=== PATIENT | female | born 1940 | race Caucasian/White ===

== ENCOUNTER 2017-01-15 07:54 | Emergency (ER) | payer MEDICARE ==
--- NOTE | 2017-01-15 08:20 | ED ---
General Adult HPI - General Chief complaint: Fall Stated complaint: Fall Time Seen by Provider: 01/15/17 08:11 Source: patient, family, RN notes reviewed Mode of arrival: wheelchair Limitations: no limitations - History of Present Illness Initial comments: Patient is a pleasant 76-year-old female presenting to the emergency department following a fall. Patient was hurrying to the bathroom when she tripped and fell. Patient did strike her face. Patient is on aspirin. No loss of consciousness. No weakness or confusion. Tetanus immunization is less than 10 years. Patient also hurt her left hand and right ribs. No neck or back pain - Related Data Allergies Allergy/AdvReac Type Severity Reaction Status Date / Time naproxen Allergy Unknown Verified 01/15/17 07:58 pregabalin [From Lyrica] Allergy Unknown Verified 01/15/17 07:58 Review of Systems ROS Statement: Those systems with pertinent positive or pertinent negative responses have been documented in the HPI. ROS Other: All systems not noted in ROS Statement are negative. Constitutional: Denies: fever Eyes: Denies: eye pain ENT: Denies: ear pain Respiratory: Denies: cough Cardiovascular: Denies: chest pain, palpitations Endocrine: Denies: fatigue Gastrointestinal: Denies: abdominal pain Genitourinary: Denies: dysuria Musculoskeletal: Denies: back pain Skin: Denies: rash Neurological: Denies: headache Past Medical History Additional Past Medical History / Comment(s): parkinson History of Any Multi-Drug Resistant Organisms: None Reported Past Surgical History: Back Surgery Past Psychological History: No Psychological Hx Reported Smoking Status: Never smoker Past Alcohol Use History: None Reported Past Drug Use History: None Reported General Exam Limitations: no limitations General appearance: alert, in no apparent distress Head exam: Present: other (Right periorbital ecchymosis without tenderness) Eye exam: Present: normal appearance, PERRL, EOMI. Absent: nystagmus ENT exam: Present: normal oropharynx Neck exam: Present: normal inspection. Absent: tenderness Respiratory exam: Present: normal lung sounds bilaterally, chest wall tenderness (Mild right lateral chest wall) Cardiovascular Exam: Present: regular rate, normal rhythm GI/Abdominal exam: Present: soft. Absent: tenderness Extremities exam: Present: other (Swelling and ecchymosis left fourth and fifth digit. Some decreased range of motion of left fifth digit. Sensation intact.) Back exam: Present: normal inspection. Absent: tenderness Neurological exam: Present: alert. Absent: motor sensory deficit Expanded Motor strength exam: RUE: 5, LUE: 5, RLE: 5, LLE: 5 Psychiatric exam: Present: normal affect, normal mood Skin exam: Present: other (Ecchymosis face and left hand. Abrasions left hand and right hand) Course Vital Signs 01/15/17 07:58 Temperature 98.2 F Pulse Rate 89 Respiratory 17 Rate Blood Pressure 92/51 O2 Sat by Pulse 98 Oximetry Procedures - Orthopedic Joint Reduction Joint #1 Consent Obtained: verbal consent Time Out Performed: Yes Side: left Joint Reduction Location: finger (Left fifth) Shoulder Technique Used (if applicable): traction/counter-traction Post-Reduction Neuro Exam: intact Post-Reduction Vascular Exam: intact Splint Applied: Yes Patient Tolerated Procedure: well, no complications Medical Decision Making - Medical Decision Making Patient reexamined and resting comfortably in bed. Patient remains neurologically intact. Patient is starting to complain of a small headache. Patient and family were updated on results and need for transfer. Case was discussed with Dr. Morales at [facility] who will accept transfer. - Radiology Data Radiology results: image reviewed (Computed tomography scan the brain shows subdural hematoma on the right, up to 1 cm. X-ray of the left hand does show dislocation of the PIP of the small finger. Chest x-ray shows no acute process. ) Disposition Clinical Impression: Subdural hematoma, Finger dislocation Disposition: OTHER INSTITUTION NOT DEFINED Condition: Stable Referrals: Anjel Ramirez MD [Primary Care Provider] - 1-2 days Time of Disposition: 09:35 - Out of Hospital Transfer - Req. Specs Out of Hospital Transfer - Requested Specifics: Other Emergency Center
--- NOTE | 2017-01-15 09:28 | CT ---
EXAMINATION TYPE: CT brain wo con DATE OF EXAM: 01/15/2017 9:03 AM COMPARISON: Prior CT brain 21 May 2011 HISTORY: Fall, Bruising to Rt eye CT DLP: 1784.2 mGycm Automated exposure control for dose reduction was used. FINDINGS: Right-sided crescentic high attenuation consistent with subdural hematoma is present over the tempora l and frontal lobes measuring approximately 1 cm in greatest thickness anteriorly. There is some juwan on on the exam however some minimal mass effect is suspected. No evident fracture. Soft tissue swelli ng noted over the right orbit and face. There is an air-fluid level in the right maxillary sinus. IMPRESSION: Subdural hemorrhage, report relayed to Dr. Solorzano telephonically at the time of interpretation. There is motion on the exam. Posttraumatic changes as above, follow-up as indicated.
--- NOTE | 2017-01-15 09:30 | XR ---
EXAMINATION TYPE: XR chest 2V DATE OF EXAM: 01/15/2017 9:05 AM COMPARISON: Prior chest x-ray May HISTORY: fall, trauma TECHNIQUE: Frontal and lateral views of the chest are obtained. FINDINGS: There is no focal air space opacity, pleural effusion, or pneumothorax seen. The cardiac silhouette size is within normal limits. The osseous structures are intact. IMPRESSION: No acute cardiopulmonary process.
--- NOTE | 2017-01-15 09:31 | XR ---
Left hand HISTORY: Trauma and pain No comparisons Arthropathy changes are present. Bone mineralization is reduced. Posterior dislocation is noted at th e proximal interphalangeal joint of the fifth digit with bayonet apposition. No evident fracture. IMPRESSION: Dislocation fifth digit as described.
[2017-01-15] MEDS ORDERED: ACETAMINOPHEN IV (For NPO) 1,000 MG in SALINE 1 100ML.BAG IVPB STA (09:33)
[2017-01-15 09:42] VITALS: BP 182/83; PULSE 92; RESP 18; TEMP 97.3
== END 2017-01-15 10:04 | disposition short-term general hospital (02) ==
LOC: EC 07:54
DX: S63.287A Dislocation of proximal interphalangeal joint of left little finger, initial encounter (principal); S06.5X0A Traumatic subdural hemorrhage without loss of consciousness, initial encounter; Z88.6 Allergy status to analgesic agent; Z88.8 Allergy status to other drugs, medicaments and biological substances; W01.0XXA Fall on same level from slipping, tripping and stumbling without subsequent striking against object, initial encounter; Y92.89 Other specified places as the place of occurrence of the external cause
CPT/HCPCS: 99285; 26770; 96374; 71020; 73130; 70450; J0131

== ENCOUNTER 2017-01-30 10:05 | Emergency (ER) | payer MEDICARE ==
[2017-01-30] MEDS ORDERED: SODIUM CHLORIDE 0.9% 500 ML IV STA (10:28)
--- NOTE | 2017-01-30 10:32 | ED ---
General Adult HPI - General Chief complaint: Neuro Symptoms/Deficit Stated complaint: SLURRED SPEECH Time Seen by Provider: 01/30/17 10:10 Source: patient, RN notes reviewed Mode of arrival: wheelchair Limitations: no limitations - History of Present Illness Initial comments: This is a 76-year-old female who presents emergency Department with family. Family states the patient had droopiness to the face on the left as well as some drooling yesterday it seemed to have subsided overnight his this morning she was without symptoms but came back again and now is again subsided. Patient states she has a mild headache because she was diagnosed with a subdural a couple of weeks ago and sent down to [facility]. Patient states the headache is not changed per patient denies any new numbness or weakness. Patient denies any visual disturbance or speech disturbance. Patient denies any recent fever or chills. Patient denies any cough per patient denies palpitations difficulty breathing. Patient denies any abdominal pain patient denies nausea vomiting diarrhea. Any new injury or trauma patient denies being on any blood thinners. - Related Data Home Medications Medication Instructions Recorded Confirmed Acetaminophen Tab [Tylenol Tab] 1,000 mg PO Q6HR PRN 01/30/17 01/30/17 Aspirin 81 mg PO DAILY 01/30/17 01/30/17 Carbidopa-Levodopa 25-100 mg 1 tab PO QID 01/30/17 01/30/17 [Sinemet 25-100] Carbidopa/Levodopa [Sinemet CR 1 tab PO HS 01/30/17 01/30/17 50-200 mg] PARoxetine [Paxil] 20 mg PO DAILY 01/30/17 01/30/17 Solifenacin Succinate [Vesicare] 5 mg PO DAILY 01/30/17 01/30/17 rOPINIRole HCL [rOPINIRole HCL ER] 8 mg PO HS 01/30/17 01/30/17 Allergies Allergy/AdvReac Type Severity Reaction Status Date / Time naproxen Allergy Unknown Verified 01/30/17 11:18 pregabalin [From Lyrica] Allergy Unknown Verified 01/30/17 11:18 Review of Systems ROS Statement: Those systems with pertinent positive or pertinent negative responses have been documented in the HPI. ROS Other: All systems not noted in ROS Statement are negative. Past Medical History Additional Past Medical History / Comment(s): parkinson, facial bone break, brain bleed History of Any Multi-Drug Resistant Organisms: None Reported Past Surgical History: Back Surgery Past Psychological History: No Psychological Hx Reported Smoking Status: Never smoker Past Alcohol Use History: None Reported Past Drug Use History: None Reported General Exam - General Exam Comments Initial Comments: GENERAL: Patient is well-developed and well-nourished. Patient is nontoxic and well- hydrated and is in no acute distress. She has a little underlying clonic movement of the left side she states it's her Parkinson's and that is normal ENT: Neck is soft and supple. No significant lymphadenopathy is noted. Oropharynx is clear. Moist mucous membranes. Neck has full range of motion without eliciting any pain. EYES: The sclera were anicteric and conjunctiva were pink and moist. Extraocular movements were intact and pupils were equal round and reactive to light. Eyelids were unremarkable. PULMONARY: Unlabored respirations. Good breath sounds bilaterally. No audible rales rhonchi or wheezing was noted. CARDIOVASCULAR: There is a regular rate and rhythm without any murmurs gallops or rubs. ABDOMEN: Soft and nontender with normal bowel sounds. No palpable organomegaly was noted. There is no palpable pulsatile mass. SKIN: Skin is clear with no lesions or rashes and otherwise unremarkable. NEUROLOGIC: Patient is alert and oriented x3. Cranial nerves II through XII are grossly intact. Motor and sensory are also intact. Normal speech, volume and content. Symmetrical smile. Cerebellar exam grossly intact. MUSCULOSKELETAL: Normal extremities with adequate strength and full range of motion. No lower extremity swelling or edema. No calf tenderness. LYMPHATICS: No significant lymphadenopathy is noted PSYCHIATRIC: Normal psychiatric evaluation. Normal interpersonal interactions appears functionally intact in deals appropriately with others. No signs of depression. No signs of anxiety. Limitations: no limitations Course Vital Signs 01/30/17 01/30/17 01/30/17 10:06 10:26 11:18 Temperature 97.1 F L 97.5 F L 97.8 F Pulse Rate 77 77 67 Respiratory 18 20 18 Rate Blood Pressure 122/60 159/65 192/79 O2 Sat by Pulse 97 96 98 Oximetry Medical Decision Making - Medical Decision Making EKG shows normal sinus rhythm at 64 bpm WA interval is 144 QRS is 86 QT interval is 422 QTC is 435. Patient's EKG shows significant ST segment elevation or depression or T-wave abdomen is noted. Computed tomography scan of the brain shows right-sided subdural with interval enlargement measuring 1.3 cm thick versus a previous 1 cm thickness it also shows both acute and subacute components to the subdural. Patient also has mass effect 8 mm leftward. I spoke with the [facility] they accepted the patient transferred the patient to their facility - Lab Data Result diagrams: 01/30/17 10:35 01/30/17 10:35 Lab Results 01/30/17 01/30/17 01/30/17 Range/Units 10:35 10:35 10:35 WBC 8.9 (3.8-10.6) k/uL RBC 4.33 (3.80-5.40) m/uL Hgb 13.4 (11.4-16.0) gm/dL Hct 40.0 (34.0-46.0) % MCV 92.3 (80.0-100.0) fL MCH 31.0 (25.0-35.0) pg MCHC 33.6 (31.0-37.0) g/dL RDW 13.3 (11.5-15.5) % Plt Count 228 (150-450) k/uL Neutrophils % 83 % Lymphocytes % 9 % Monocytes % 5 % Eosinophils % 1 % Basophils % 0 % Neutrophils # 7.4 (1.3-7.7) k/uL Lymphocytes # 0.8 L (1.0-4.8) k/uL Monocytes # 0.5 (0-1.0) k/uL Eosinophils # 0.1 (0-0.7) k/uL Basophils # 0.0 (0-0.2) k/uL PT 11.0 (9.0-12.0) sec INR 1.1 (<1.1) APTT 22.6 (22.0-30.0) sec Sodium 137 (137-145) mmol/L Potassium 4.1 (3.5-5.1) mmol/L Chloride 100 (98-107) mmol/L Carbon Dioxide 29 (22-30) mmol/L Anion Gap 8 mmol/L BUN 24 H (7-17) mg/dL Creatinine 0.76 (0.52-1.04) mg/dL Est GFR (MDRD) Af Amer >60 (>60 ml/min/1.73 sqM) Est GFR (MDRD) Non-Af >60 (>60 ml/min/1.73 sqM) Glucose 98 (74-99) mg/dL Calcium 9.3 (8.4-10.2) mg/dL Total Bilirubin 0.8 (0.2-1.3) mg/dL AST 15 (14-36) U/L ALT 16 (9-52) U/L Alkaline Phosphatase 77 (38-126) U/L Total Protein 6.6 (6.3-8.2) g/dL Albumin 4.1 (3.5-5.0) g/dL Critical Care Time Critical Care Time: Yes Total Critical Care Time: 35 Disposition Clinical Impression: Acute on chronic intracranial subdural hematoma Disposition: OTHER INSTITUTION NOT DEFINED Referrals: Anjel Ramirez MD [Primary Care Provider] - 1-2 days Time of Disposition: 11:25 - Out of Hospital Transfer - Req. Specs Out of Hospital Transfer - Requested Specifics: Other Emergency Center ( [facility])
[2017-01-30 11:00] LABS: Basophils % (A) 0 %; CH 31.3; Eosinophils # (A) 0.1 k/uL (0-0.7); Eosinophils % (A) 1 %; HDW 2.63; HGB 13.4 gm/dL (11.4-16.0); Luc # (Auto) 0.09; Luc % (Auto) 1; Lymphocytes # (A) 0.8 k/uL (1.0-4.8); Lymphocytes % (A) 9 %; MCHC 33.6 g/dL (31.0-37.0); MCV 92.3 fL (80.0-100.0); Mean Platelet Volume 6.8; Monocytes # (A) 0.5 k/uL (0-1.0); Monocytes % (A) 5 %; Neutrophils # (A) 7.4 k/uL (1.3-7.7); Neutrophils % (A) 83 %; RBC 4.33 m/uL (3.80-5.40); RDW 13.3 % (11.5-15.5); WBC 8.9 k/uL (3.8-10.6); WBC (Perox) 9.17
[2017-01-30 11:12] LABS: ALT 16 U/L (9-52); AST 15 U/L (14-36); Alkaline Phosphatase 77 U/L (38-126); Anion Gap 8 mmol/L; Blood Urea Nitrogen 24 mg/dL (7-17); Calcium 9.3 mg/dL (8.4-10.2); Carbon Dioxide 29 mmol/L (22-30); Chloride 100 mmol/L (98-107); Glucose 98 mg/dL (74-99); Non-African American GFR(MDRD) >60 (>60 ml/min/1.73 sqM); Potassium 4.1 mmol/L (3.5-5.1); Sodium 137 mmol/L (137-145); Total Bilirubin 0.8 mg/dL (0.2-1.3); Total Protein 6.6 g/dL (6.3-8.2)
[2017-01-30 11:13] LABS: INR 1.1 (<1.1); Partial Thromboplastin Time 22.6 sec (22.0-30.0)
--- NOTE | 2017-01-30 11:15 | CT ---
EXAMINATION TYPE: CT brain wo con for TPA DATE OF EXAM: 01/30/2017 11:03 AM COMPARISON: 01/15/2017 HISTORY: 76-year-old female with slurred speech TECHNIQUE: Examination was done in axial plane without intravenous contrast. Coronal and sagittal r econstructions performed. CT DLP: 1067.9 mGycm Automated exposure control for dose reduction was used. FINDINGS: There is redemonstrated subdural hematoma along the right lateral convexity extending anteriorly. Thi s is increased in the interval now measuring 1.3 cm thick versus 1 cm, previously. This shows mixed h yperdensity and isodensity suggesting both acute and subacute components now. There is increasing leftward midline shift of 8 mm with corresponding mass effect onto the right cere bral hemisphere and asymmetric partial flattening of the right lateral ventricle. There is slight shahid bfalcine herniation. No hydrocephalus. Camacho-white matter differentiation is maintained. Lobulated mucosal thickening lateral right maxillary sinus. Mastoid air cells well pneumatized. Hannah rium is intact. IMPRESSION: 1. The patient's right-sided subdural hematoma shows interval enlargement measuring 1.3 cm thick vers us 1 cm, previously now with both acute and subacute components. 2. Increasing mass effect with 8 mm leftward midline shift and slight subfalcine herniation. 3. No acute ischemic changes seen at this time. Findings called to Dr. Dang in the ER at approximately 11:10 AM.
[2017-01-30 11:19] VITALS: RESP 18
[2017-01-30 11:19] LABS: Creatine Kinase 55 U/L (30-135)
--- NOTE | 2017-01-30 11:31 | XR ---
EXAMINATION TYPE: XR chest 2V DATE OF EXAM: 01/30/2017 11:13 AM COMPARISON: 01/15/2017 HISTORY: 76 year-old female altered mental status, slurred speech, stroke like symptoms after fall on e week ago TECHNIQUE: Frontal and lateral views FINDINGS: Heart remains borderline enlarged. Mild diffuse interstitial prominence persists and likely chronic s enescent change. Strandy atelectasis at the lower lungs. No consolidation or pleural effusion. Endpla te spondylosis mid and lower thoracic spine. IMPRESSION: Borderline heart size and chronic changes. Some strandy atelectasis in the lower lungs. No acute proc ess seen.
[2017-01-30 11:33] LABS: Troponin I <0.012 ng/mL (0.000-0.034)
[2017-01-30 11:55] VITALS: BP 183/84; PULSE 71; TEMP 97.9
== END 2017-01-30 11:59 | disposition other institution (70) ==
LOC: EC 10:05
DX: I62.03 Nontraumatic chronic subdural hemorrhage (principal); I62.9 Nontraumatic intracranial hemorrhage, unspecified; G20 Parkinson's disease; Z79.82 Long term (current) use of aspirin; Z79.899 Other long term (current) drug therapy; Z88.6 Allergy status to analgesic agent; Z88.8 Allergy status to other drugs, medicaments and biological substances
CPT/HCPCS: 36415; 70450; 71020; 80053; 82550; 82553; 84484; 85025; 85610; 85730; 93005; 96360; 99285

== ENCOUNTER → 2017-04-08 | Outpatient (CLI) | payer MEDICARE ==
[2017-04-08 16:28] LABS: Basophils % (A) 1 %; CH 30.1; CHCM 33.1; Eosinophils # (A) 0.1 k/uL (0-0.7); Eosinophils % (A) 1 %; HDW 2.52; HGB 13.3 gm/dL (11.4-16.0); Luc # (Auto) 0.17; Luc % (Auto) 2; Lymphocytes # (A) 1.2 k/uL (1.0-4.8); Lymphocytes % (A) 14 %; MCH 31.1 pg (25.0-35.0); MCHC 34.1 g/dL (31.0-37.0); MCV 91.2 fL (80.0-100.0); Mean Platelet Volume 7.5; Monocytes # (A) 0.6 k/uL (0-1.0); Monocytes % (A) 7 %; Neutrophils # (A) 6.3 k/uL (1.3-7.7); Neutrophils % (A) 75 %; RBC 4.28 m/uL (3.80-5.40); RDW 13.2 % (11.5-15.5); WBC 8.4 k/uL (3.8-10.6); WBC (Perox) 7.84
[2017-04-08 16:42] LABS: C Reactive Protein 26.9 mg/L (<10.0); Rheumatoid Factor, Qnt <9 IU/mL (<12); Uric Acid 3.9 mg/dL (3.7-7.4)
[2017-04-08 18:34] LABS: Erythrocyte Sedimentation Rate 19 mm/hr (0-20)
== END | disposition home or self-care (01) ==
LOC: LABWHC1 16:12
PROVIDERS: ATTEND Podiatrist Foot & Ankle Surgery
DX: M10.9 Gout, unspecified (principal)
CPT/HCPCS: 36415; 84550; 85025; 85652; 86140; 86431

== ENCOUNTER → 2017-08-12 | Outpatient (CLI) | payer MEDICARE ==
--- NOTE | 2017-08-12 11:18 | XR ---
EXAMINATION TYPE: XR foot complete LT DATE OF EXAM: 08/12/2017 COMPARISON: NONE HISTORY: Chronic ulceration of skin first metatarsophalangeal joint space TECHNIQUE: Three-view left foot FINDINGS: Hallux valgus deformity is present with subluxation of the first metatarsal. Post bunionect marian along the medial distal first metatarsal. Soft tissue swelling overlies the first metatarsophalan geal joint space. No acute fractures are evident. Suspicious cortical erosion identified plantar calc aneal heel spur is present. Surgical sutures over the proximal phalanx first digit. IMPRESSION: 1. Hallux valgus deformity first digit. 2. Soft tissue swelling first metatarsophalangeal joint space. 3. Suspicious radiographic findings to suggest osteomyelitis are not evident. 3 phase bone scan could be performed if closer evaluation is required.
== END | disposition home or self-care (01) ==
LOC: RADXRMAIN 10:25
PROVIDERS: ATTEND Internal Medicine
DX: M20.12 Hallux valgus (acquired), left foot (principal); L98.491 Non-pressure chronic ulcer of skin of other sites limited to breakdown of skin

== ENCOUNTER → 2017-08-29 | Outpatient (CLI) | payer MEDICARE ==
--- NOTE | 2017-08-29 15:01 | NM ---
EXAMINATION TYPE: NM bone 3 phase DATE OF EXAM: 08/29/2017 COMPARISON: Radiograph 08/12/2017 HISTORY: 76 year-old female recurrent left foot cellulitis Technique: Triple phase bone scintigraphy was performed following the injection of27.6 mCi Tc 99m MDP . Immediate images and 5.25 hours post injection images acquired. FINDINGS: Flow images show hyperemia involving the left foot more focally along the region of the medial forefo ot. Similar findings seen on pool images. Delayed images show focal intense tracer activity in the region of the left first MTP joint. IMPRESSION: Three-phase positive bone scan findings in the region of the left first MTP joint. Findings can be se en in the setting of osteomyelitis.
== END | disposition home or self-care (01) ==
LOC: RADNMMAIN 07:23
PROVIDERS: ATTEND Internal Medicine
DX: L03.032 Cellulitis of left toe (principal)
CPT/HCPCS: 78315; A9503

== ENCOUNTER 2017-09-22 11:01 | Day surgery (SDC) | payer MEDICARE ==
[2017-09-16 14:48] VITALS: BMI 25.3
[~2017-09-22 11:01] MED LIST: DEXAMETHASONE SOD PHOSPHATE 10 MG/ML 1 ML VIAL IV ONE; ONDANSETRON 4 MG/2 ML VIAL IVP ONE; ceFAZolin IN SWFI 2 GM/20 ML SYRINGE IVP ONE
[2017-09-22] MEDS ORDERED: LIDOCAINE 1% 20 ML VIAL (10MG/ML) FOR IV START INTRADERMA ONE (11:55)
[2017-09-22] MEDS: LACTATED RINGERS 1,000 ML IV SCH ×2 (11:56→16:07)
[2017-09-22] MEDS ORDERED: SENNOSIDES-DOCUSATE SODIUM 1 EACH TAB PO PRN (12:21)
[2017-09-22] MEDS ORDERED: HYDROmorphone 1 MG/ML 1 ML SYRINGE IVP PRN ×3 (12:21)
[2017-09-22] MEDS ORDERED: diphenhydrAMINE 25 MG CAP PO PRN (12:21)
[2017-09-22] MEDS ORDERED: ONDANSETRON 4 MG/2 ML VIAL IVP PRN (12:21)
[2017-09-22] MEDS ORDERED: METOCLOPRAMIDE 5 MG/ML 2 ML VIAL IVP PRN (12:21)
[2017-09-22] MEDS ORDERED: TEMAZEPAM 15 MG CAP PO PRN (12:21)
[2017-09-22] MEDS ORDERED: hydrOXYzine PAMOATE 25 MG CAP PO PRN (12:21)
[2017-09-22] MEDS ORDERED: PROCHLORPERAZINE SUPPOSITORY 25 MG SUPP RECTAL PRN (12:21)
[2017-09-22] MEDS ORDERED: HYDROcodone/APAP 7.5-325MG 1 EACH TAB PO PRN (12:26)
[2017-09-22] MEDS ORDERED: fentaNYL (PF) 50 MCG/ML 2 ML AMP ONE (12:32)
[2017-09-22] MEDS ORDERED: SUCCINYLCHOLINE CHLORIDE 100 MG/5 ML SYR IV ONE (12:32)
[2017-09-22] MEDS ORDERED: LIDOCAINE 1% INJ 10MG/ML (20 ML MDV) ONE (12:32)
[2017-09-22] MEDS ORDERED: MIDAZOLAM 2 MG/2 ML VIAL ONE (12:32)
[2017-09-22] MEDS ORDERED: PROPOFOL 10 MG/ML 20 ML VIAL IV ONE (12:32)
[2017-09-22] MEDS ORDERED: SODIUM CHLORIDE 0.9% 50 ML with ceFAZolin 2,000 MG IV ONE ×2 (13:00)
--- NOTE | 2017-09-22 13:43 | FL ---
Fluoroscopy History: lt great toe amputation lt great toe amputation in OR. 8 sec fl time. 1 pic scanned
[2017-09-22] MEDS: HYDROmorphone 0.5 MG/0.5 ML SYRINGE IVP PRN ×2 (14:13→14:19)
[2017-09-22] MEDS: HYDROmorphone 1 MG/ML 1 ML SYRINGE IVP ONE ×2 (14:35→14:45)
[2017-09-22] MEDS ORDERED: ACETAMINOPHEN TAB 500 MG TAB PO PRN (16:52)
[2017-09-22] MEDS: CARBIDOPA-LEVODOPA 25-100 MG 1 EACH TAB PO SCH ×2 (17:53→20:30)
[2017-09-22] MEDS: ceFAZolin IN SWFI 2 GM/20 ML SYRINGE IVP SCH ×2 (17:55→23:33)
[2017-09-22] MEDS: PARoxetine 10 MG TAB PO SCH (20:31)
[2017-09-22] MEDS ORDERED: OXYBUTYNIN 10 MG TAB.ER.24 PO SCH (21:00)
[2017-09-22] MEDS: CARBIDOPA-LEVODOPA ER 50-200MG 1 EACH TABLET.ER PO SCH (22:08)
--- NOTE | 2017-09-22 23:31 | CONS ---
CONSULTATION ATTENDING PHYSICIAN: Dr. Kowalski. CONSULTING PHYSICIAN: Dr. Nichol Ramirez. Consultation regarding medical evaluation management. HISTORY OF PRESENT ILLNESS: This is a 76-year-old female was referred to Dr. Kowalski because of the patient having recurrent drainage from her 1st MTP site. The patient had a previous callus which has healed. The patient had actually been seeing a sql database administrator who had treated her with antibiotics with negative cultures repeatedly. The patient had subsequently been to the wound center because of an ulcerated callus. She was treated at the wound center for a while. The patient presented to [facility] with inflamed 1st MTP with no drainage at that time. However, a small aspirate from subcutaneous area was sent for a culture, which was negative. The patient was treated with Bactrim with resolution of further inflammation at the MTP. The patient has subsequently intermittent drainage and in view of this, was referred to Dr. Kowalski for possible underlying deep tissue infections or osteomyelitis. After studies, it was concluded that the patient had osteomyelitis and in view of this, patient underwent surgical procedure today. The patient is doing well postoperatively. PAST MEDICAL HISTORY: Significant for Parkinson's. The patient is on medical therapy for the same. She follows with a neurologist in [place]. The patient also has a history of degenerative arthritis with some left leg radicular symptoms which have been chronic. The patient is being treated with Paxil to help those symptoms. History of chronic urinary incontinence, history of degenerative arthritis. The patient has no history of diabetes mellitus, lung disease, liver disease, kidney disease, ulcers, TB, hepatitis. No history of any rheumatic fever, myocardial infarction or CVA. PAST SURGICAL HISTORY: Significant for evacuation of a subdural hematoma and previous lumbosacral surgery. Also significant for tubal ligation, bilateral cataracts, and tonsillectomy. PERSONAL HISTORY: Never smoker. Alcohol: None. ALLERGIES TO MEDICATIONS: Which include AMANTADINE, NAPROXEN and LYRICA. HOME MEDICATION LIST: Includes: 1. Requip ER 8 mg daily. 2. VESIcare 5 mg daily. 3. Paxil 10 mg daily. 4. Multivitamin daily. 5. Magnesium 250 mg daily. 6. Sinemet CR 50/200, 1 daily at bedtime and Sinemet 25/100, 1-1/2 tablet at 7:00, 10:00, 13:00 and 1600 hours and 1900 hours. 7. Calcium with vitamin D and. 8. Tylenol. SOCIAL HISTORY: Patient is , lives with her spouse, who provides excellent care for her. FAMILY MEDICAL HISTORY: Patient has 2 daughters in good health. REVIEW OF SYSTEMS: NEURO: Denies any headaches, dizziness. No double vision, blurred vision. No symptoms of TIA, syncope, seizures. PSYCH: No anxiety, depression. CARDIAC: No chest pain, angina, palpitations. RESPIRATORY: No shortness of breath, cough, hemoptysis. GI: No nausea, vomiting, abdominal pain, diarrhea. : No symptoms of dysuria, hematuria, has a history of incontinence. EXTREMITIES: Denies any pain in the right foot at present. CONSTITUTIONAL: No fever, chills. HEMATOLOGICAL: No anemia or bleeding disorder. ENDOCRINE: No history of diabetes mellitus, hypothyroidism. SKIN: No rashes. PHYSICAL EXAMINATION: Pleasant female at present in no distress. Vital signs are temp, patient is afebrile with a temperature 98.2, respirations 17, blood pressure 152/84, pulse ox 97%. HEENT: Normocephalic. NECK: Decreased range of motion. CHEST: Clear to auscultation. CARDIAC: Normal S1, S2 with no gallops, murmurs, rubs. ABDOMEN: Soft. No palpable masses. Bowel sounds normal. No organomegaly. No abdominal bruits. EXTREMITIES: No edema. Good pedal pulses, right foot. The left foot has a dressing. NEUROLOGICAL: Awake, alert, oriented x3 with well-coordinated movements. Has generalized bradykinesia and generalized stiffness. No tremors noted. LABORATORY ASSESSMENT: None new. ASSESSMENT: 1. Parkinson's, on medical therapy. 2. History of chronic urinary incontinence. 3. Degenerative arthritis, especially affecting lumbosacral spine. 4. Status post left great toe amputation. PLAN: The patient is stable. Continue present medical regimen. Patient's condition discussed with the patient. Prognosis guarded. MMODL / IJN: [id number] /
[2017-09-23] MEDS: LACTATED RINGERS 1,000 ML IV SCH (00:52)
[2017-09-23] MEDS ORDERED: CARBIDOPA-LEVODOPA 25-100 MG 1 EACH TAB PO SCH (07:00)
[2017-09-23] MEDS: CARBIDOPA-LEVODOPA 25-100 MG 1 EACH TAB PO SCH (07:28)
[2017-09-23] MEDS: HYDROcodone/APAP 7.5-325MG 1 EACH TAB PO PRN (07:36)
[2017-09-23] MEDS ORDERED: ENOXAPARIN 40 MG/0.4 ML SYRINGE SQ ONE (08:30)
[2017-09-23] MEDS ORDERED: PARoxetine 10 MG TAB ONE (08:30)
[2017-09-23] MEDS ORDERED: CALCIUM CARB-VIT D 500MG-200UN 1 EACH TAB ONE (08:30)
[2017-09-23] MEDS ORDERED: MAGNESIUM OXIDE 400 MG TAB ONE (08:30)
[2017-09-23] MEDS ORDERED: VIT A,C & E-LUTEIN-MINERALS 1 EACH TAB ONE (08:30)
[2017-09-23] MEDS ORDERED: CARBIDOPA-LEVODOPA 25-100 MG 1 EACH TAB ONE ×2 (08:30)
[2017-09-23] MEDS ORDERED: CARBIDOPA-LEVODOPA ER 50-200MG 1 EACH TABLET.ER PO ONE (08:30)
[2017-09-23] MEDS ORDERED: HYDROcodone/APAP 7.5-325MG 1 EACH TAB ONE ×3 (08:30)
[2017-09-23] MEDS ORDERED: MULTIVITAMINS, THERA 1 EACH TAB ONE (08:30)
[2017-09-24] MEDS ORDERED: HYDROcodone/APAP 7.5-325MG 1 EACH TAB ONE (00:40)
[2017-09-24] MEDS: HYDROcodone/APAP 7.5-325MG 1 EACH TAB PO PRN ×4 (06:50→19:07)
--- NOTE | 2017-09-24 08:21 | OP ---
OPERATIVE REPORT DATE OF SURGERY: 09/22/2017. PREOPERATIVE DIAGNOSES: 1. Left recurrent hallux valgus with chronic open draining wound and likely osteomyelitis of the distal 1st metatarsal proximal phalanx. 2. Parkinson disease. POSTOPERATIVE DIAGNOSES: 1. Left recurrent hallux valgus with chronic open draining wound and likely osteomyelitis of the distal 1st metatarsal proximal phalanx. 2. Parkinson disease. PROCEDURE: Left partial 1st ray amputation. SURGEON: Dr. Fab Kowalski. CONSUMER LOAN MANAGER: Isaac BUTLER (Isaac BUTLER was required as a skilled physiotherapist's assistant for patient positioning, surgical exposure, completion of the amputation and closure of wound). ANESTHESIA: General. FLUIDS: 250 mL of crystalloid. TOURNIQUET TIME: 20 minutes. INDICATION: The patient is a very pleasant 76-year-old female with a medical history significant for Parkinson disease. She previously underwent surgery for a hallux valgus, but unfortunately had a recurrence. She developed an open draining wound over the medial eminence of her 1st MTP joint that has periodically opened and drained savage pus. She has been [facility], but had ongoing problems. She came to see me. An MRI was obtained which showed findings consistent with osteomyelitis. I had a lengthy discussion with the patient and her on treatment options. We discussed continued local wound care with suppression, partial resection of the 1st ray, resection of the joint, and a transmetatarsal amputation. The patient and her spoke with her primary care physician as well. We ultimately decided to perform a partial 1st ray amputation. We discussed the potential risks and complications of surgery including, but not limited to risk of anesthesia, risk of superficial infection, risk of delayed wound healing, risk of superficial wound necrosis, risk of phantom limb pain, risk of need for more proximal amputation including a transmetatarsal amputation or below-knee amputation, risk of recurrent open wounds, risk of difficulty ambulating, risk of balance issues, risk of dissatisfaction with surgery, risk of failure to regain pre-injury level of function, risk of DVT, risk of PE, risk of other medical complications of possible loss of life or limb. The patient, her acknowledged these risks, voiced understanding and provided consent to go forward with surgery. PROCEDURE: The patient identified in preoperative holding. The correct left leg and 1st toe were marked with my initials. I reviewed the consent form with the patient and her . All their questions were answered. The patient was then brought back to the operating room. She was positioned on the OR table under general anesthetic and preoperative antibiotics were administered. All bony prominences were well padded. A tourniquet was applied to the proximal aspect of the left thigh. The patient's leg was then prepped and draped in the standard sterile fashion. Prior to starting surgery, time- out was performed identifying the correct patient, operative extremity, and procedure. The patient's leg was then elevated for 2 minutes and the tourniquet was inflated to 250 mmHg. I began by outlining a skin incision for a partial 1st ray resection. A longitudinal limb was made along the medial border of the 1st metatarsal. The open draining wound was ellipsed was marked. An ellipse was marked over the open draining wound and then racquet type and markings were made over the base of the proximal phalanx. Skin incision was made with a 15 blade scalpel down to bone along the previously made markings. The 1st MTP joint was circumferentially exposed. The flexor and extensor tendons were cut proximally and allowed to retract. The neurovascular bundle was identified, cut and coagulated with electrocautery. The MTP joint was then disarticulated and the toe was handed off to the back table and was sent as a specimen. The 1st metatarsal was then exposed. A small microsagittal saw was used to make an oblique cut starting proximal medial and ending distal and lateral. There was also a double in the sagittal plane from dorsal distal to proximal plantar to help prevent any prominence on the wound. Once the cut was made, the distal 1st metatarsal head was sent as a specimen. The medial sesamoid was sharply excised. The lateral sesamoid was left. The wound was copiously irrigated. The remaining wound appeared clean with no savage pus. The wound was again copiously irrigated. The tourniquet was let down with a total tourniquet time of 20 minutes. The plantar skin from the plantar flap was then used to create a flap over the cut bone. The redundant skin from the dorsal aspect was trimmed to help prevent any dog-ears. The deep subcu was reapproximated using 0-Vicryl. The subcu was reapproximated using 2-0 Vicryl. The skin was closed using the no-touch technique and 3-0 nylon. The closure appeared to nicely reapproximate the wound with no undue tension and there was a nice plantar flap over the 1st metatarsal, which appeared to be a durable weightbearing surface. I verified that all instrument, sponge and sharp counts were correct. A sterile dressing consisting of Betadine-soaked Adaptic, 4 x 4, and Webril was applied. The patient was then woken from her anesthetic, transferred from the OR table to a gurney, brought to PACU, having tolerated the procedure well. PLAN: The patient is going to be admitted for IV antibiotics, pain control, Internal Medicine consult and wound consult. She may need discharge to a rehab facility. She is to be placed in a tall Cam boot. She can balance on her heel, but is not to bear any weight on her forefoot. She will follow up in the office in 2 weeks. MMVIRIDIANAL / YOBANIN: [id number] /
[2017-09-24] MEDS: LACTATED RINGERS 1,000 ML IV SCH ×5 (08:24→15:48)
[2017-09-24] MEDS: MAGNESIUM OXIDE 400 MG TAB PO SCH ×2 (08:25→09:09)
[2017-09-24] MEDS: ENOXAPARIN 40 MG/0.4 ML SYRINGE SQ SCH ×2 (08:25→09:09)
[2017-09-24] MEDS: CALCIUM CARB-VIT D 500MG-200UN 1 EACH TAB PO SCH ×2 (08:25→09:11)
[2017-09-24] MEDS: CARBIDOPA-LEVODOPA 25-100 MG 1 EACH TAB PO SCH ×7 (08:26→19:04)
[2017-09-24] MEDS: MULTIVITAMINS, THERA 1 EACH TAB PO SCH ×2 (08:26→13:40)
[2017-09-24] MEDS: VIT A,C & E-LUTEIN-MINERALS 1 EACH TAB PO SCH ×2 (08:26→09:26)
[2017-09-24] MEDS: CARBIDOPA-LEVODOPA ER 50-200MG 1 EACH TABLET.ER PO SCH ×2 (08:27→22:02)
[2017-09-24] MEDS: PARoxetine 10 MG TAB PO SCH ×2 (08:27→22:02)
--- NOTE | 2017-09-24 10:48 | P.DS ---
Providers Attending physician: Fab Kowalski Consults: 09/22/17 12:21 Consult Physician Routine Consulting Provider: Anjel Ramirez Consult Reason/Comments: post op medical management Do you want consulting provider notified?: Yes Primary care physician: Anjel Ramirez Hospital Course: The patient is a very pleasant 68-year-old female with a medical history significant for Parkinson's disease and a recurrent hallux valgus with open draining wound MRI evidence of underlying osteomyelitis. The patient underwent a partial first ray amputation 2 days ago. She was admitted to the hospital for medical management, antibiotics, wound care, and therapy. She did well. Her dressing was changed on postoperative day 2 and her incision appeared to be clean with minimal drainage. She was placed in a tall boot. She worked with physical therapy. She was cleared for discharge on 09/24/2017. Plan - Discharge Summary Discharge Rx Participant: Yes New Discharge Prescriptions: No Action Solifenacin Succinate [Vesicare] 5 mg PO HS Carbidopa/Levodopa [Sinemet CR 50-200 mg] 1 tab PO DAILY@2200 Acetaminophen Tab [Tylenol Tab] 1,000 mg PO Q6HR PRN PRN Reason: Pain rOPINIRole HCL [rOPINIRole HCL ER] 8 mg PO DAILY@1700 PARoxetine [Paxil] 10 mg PO HS Carbidopa-Levodopa 25-100 mg [Sinemet 25-100] 1.5 tab PO 0700,1000,1300,1600 Carbidopa-Levodopa 25-100 mg [Sinemet 25-100] 1.5 each PO 1900 Multivitamins, Thera [Multivitamin (formulary)] 1 tab PO DAILY Magnesium Oxide [Mag-Ox] 250 mg PO DAILY Vit C/E/Zn/Coppr/Lutein/Zeaxan [Preservision Areds 2 Softgel] 2 each PO DAILY Calcium Carbonate/Vitamin D3 [Caltrate 600 Plus D3 Tablet] 1 each PO DAILY Discharge Medication List Acetaminophen Tab [Tylenol Tab] 1,000 mg PO Q6HR PRN 01/30/17 [History] Carbidopa-Levodopa 25-100 mg [Sinemet 25-100] 1.5 tab PO 0700,1000,1300,1600 [History] Carbidopa/Levodopa [Sinemet CR 50-200 mg] 1 tab PO DAILY@2200 01/30/17 [History] PARoxetine [Paxil] 10 mg PO HS 01/30/17 [History] Solifenacin Succinate [Vesicare] 5 mg PO HS 01/30/17 [History] rOPINIRole HCL [rOPINIRole HCL ER] 8 mg PO DAILY@1700 01/30/17 [History] Calcium Carbonate/Vitamin D3 [Caltrate 600 Plus D3 Tablet] 1 each PO DAILY 05/23 [History] Carbidopa-Levodopa 25-100 mg [Sinemet 25-100] 1.5 each PO 1900 05/23/17 [History ] Magnesium Oxide [Mag-Ox] 250 mg PO DAILY 05/23/17 [History] Multivitamins, Thera [Multivitamin (formulary)] 1 tab PO DAILY 05/23/17 [History ] Vit C/E/Zn/Coppr/Lutein/Zeaxan [Preservision Areds 2 Softgel] 2 each PO DAILY [History]
--- NOTE | 2017-09-24 12:20 | PN ---
PROGRESS NOTE ATTENDING PHYSICIAN: Dr. Kowalski. CONSULTING PHYSICIAN: Dr. Ute Ramirez. Progress note dated 09/23/2017. DATE OF SERVICE: 09/23/2017. CHIEF COMPLAINT: Re-evaluation. HISTORY OF PRESENT ILLNESS: 76-year-old female status post left foot surgery. The patient is doing relatively well. She has a history of Parkinson's. Denies any major symptoms. She did sleep through well. Has a history of chronic urinary incontinence. Not much of symptoms at present today. REVIEW OF SYSTEMS: Neuro: Denies any headaches dizziness. Psych: No anxiety. Cardiac: No chest pain, angina or palpitation. Respiratory: No shortness of breath. GI no nausea, vomiting, abdominal pain, diarrhea. : No symptoms of dysuria or hematuria. Extremities: some pain in the left foot. CONSTITUTIONAL: No fever or chills. PHYSICAL EXAMINATION: Pleasant female in no distress. VITAL SIGNS: Temperature 97.7, pulse 75, respirations 16, blood pressure 110/60, pulse ox 96% on room air. HEENT: Normocephalic. Neck no JVD. CHEST: Clear to auscultation. Cardiac normal S1, S2. No gallops. No murmurs. ABDOMEN: Soft. Bowel sounds present. EXTREMITIES: No edema. No tenderness. Left foot minimal blood staining on the dressing. NEUROLOGIC: Awake, alert, oriented, well-coordinated movements. bradykinesia. LABORATORY DATA: None new. ASSESSMENT: 1. Parkinson's controlled. 2. Chronic urinary incontinence. 3. Status post left foot surgery. PLAN: Patient is stable. Continue present medical regimen. Patient's condition is discussed with the patient. Prognosis guarded. MMODL / IJN: [id number] /
--- NOTE | 2017-09-24 12:51 | PN ---
PROGRESS NOTE ATTENDING PHYSICIAN: Dr. Kowalski CHIEF COMPLAINT: Re-evaluation. HISTORY OF PRESENT ILLNESS: 76-year-old status post left foot surgery. The patient is doing fairly well. REVIEW OF SYSTEMS: Neuro: Denies any headaches dizziness. Psych: No anxiety. Cardiac: No chest pain, angina, palpitation. Respiratory: No shortness of breath or cough. GI no nausea, vomiting, abdominal pain, diarrhea. : No symptoms of dysuria or hematuria. Some incontinence. Extremities: Pain left foot. CONSTITUTIONAL: No fever or chills. PHYSICAL EXAMINATION: Pleasant female in no distress. Vital signs reveals temperature 97.4, pulse 72, respirations 16, blood pressure 134/67, pulse ox 95% on room air. HEENT: Normocephalic. Neck no JVD. CHEST: Clear to auscultation. Cardiac normal S1, S2 with no gallops. ABDOMEN: Soft. Bowel sounds active. EXTREMITIES: No edema. Good pulses both upper extremities and right foot. Neurological awake, alert, oriented, well-coordinated movements. The patient does have generalized bradykinesia and stiffness. LABORATORY ASSESSMENT: None new. ASSESSMENT: 1. Status post left foot surgery for osteomyelitis. 2. Parkinson's, controlled. 3. History of chronic urinary incontinence. PLAN: The patient is stable. Continue present medical regimen. Patient's condition discussed with the patient. Prognosis guarded. MMODL / IJN: [id number] /
[2017-09-25 01:16] VITALS: RESP 16
[2017-09-25] MEDS: LACTATED RINGERS 1,000 ML IV SCH ×3 (03:09→11:31)
[2017-09-25] MEDS: HYDROcodone/APAP 7.5-325MG 1 EACH TAB PO PRN ×2 (05:04→09:03)
[2017-09-25] MEDS: CARBIDOPA-LEVODOPA 25-100 MG 1 EACH TAB PO SCH ×2 (07:26→10:03)
[2017-09-25 07:30] VITALS: BP 144/71; PULSE 73; TEMP 98.3
[2017-09-25] MEDS: CALCIUM CARB-VIT D 500MG-200UN 1 EACH TAB PO SCH (08:52)
[2017-09-25] MEDS: ENOXAPARIN 40 MG/0.4 ML SYRINGE SQ SCH (08:52)
[2017-09-25] MEDS: MAGNESIUM OXIDE 400 MG TAB PO SCH (08:52)
[2017-09-25] MEDS: VIT A,C & E-LUTEIN-MINERALS 1 EACH TAB PO SCH (08:52)
--- NOTE | 2017-09-25 11:20 | P.PN ---
Subjective Progress Note Date: 09/25/17 History present illness: This 76-year-old female was admitted to the hospital and has undergone amputation of the left greater toe. Patient had a recurrent cellulitis due to an infection in the bone. Patient is doing well she has underlying history of Parkinson's. Patient feels well with no symptoms of fever or chills. Pain tolerable left foot. Patient was assisted out of bed and ambulated with a walker. She did fairly well the patient is being discharged today. REVIEW OF SYSTEMS: Neuro: Denies any headaches dizziness. Psych: Denies anxiety depression feels oriented. Cardiac: Denies chest pain and angina palpitations. Respiratory: Denies shortness of breath cough. GI: Denies nausea vomiting or abdominal pain. No diarrhea or constipation, no bowel movement yet. : Denies any pain or hematuria does have some incontinence Extremities: Mild pain left foot Skin: Intact. Constitutional: No fever, chills. Objective - Vital Signs Vital signs: Vital Signs Temp 98.3 F 09/25/17 07:30 Pulse 73 09/25/17 07:30 Resp 16 09/25/17 07:30 BP 144/71 09/25/17 07:30 Pulse Ox 94 L 09/25/17 07:30 Intake & Output 09/24/17 09/25/17 09/25/17 18:59 06:59 18:59 Other: Voiding Method Diaper # Voids 1 1 PHYSICAL EXAMINATION: Cooperative, at present in no acute distress. HEENT: Neck supple. No JVD. Chest: Clear to auscultation percussion. Cardiac: Normal S1-S2 no gallops no murmur . Abdomen: Soft bowel sounds present. Extremities: No edema no tenderness left foot site of surgery , intact sensation with no redness or drainage. Sutures in place Neurologically: Awake, alert, oriented with well-coordinated movements. Generalize increased muscle tone and bradykinesia. - Labs Labs: Microbiology - Last 24 Hours (Table) 09/22/17 13:15 Anaerobic Culture - Preliminary Foot - Left 09/22/17 13:15 Gram Stain - Final Foot - Left Wound Culture - Final Assessment and Plan Assessment: ASSESSMENT: 1. Status post left foot great toe amputation. 2. Osteomyelitis left great toe. 3. Parkinson's. 4. Chronic urinary incontinence. PLAN: Patient is stable to be discharged home. Patient's condition discussed with the patient and spouse. They're comfortable about managing well at home. Home care PT is been ordered. Also has placed the patient on pain medication and antibiotic and an aspirin prophylaxis.
== END 2017-09-25 12:31 | disposition home health service (06) ==
LOC: ORWHC2ENDO 11:01 → EDSTATUS 12:30 → 3SUR 13:44 → ORWHC2ENDO 09-25 12:31
PROVIDERS: ATTEND Orthopaedic Surgery
DX: M86.8X7 Other osteomyelitis, ankle and foot (principal); M20.12 Hallux valgus (acquired), left foot; L90.5 Scar conditions and fibrosis of skin; M65.9 Synovitis and tenosynovitis, unspecified; G20 Parkinson's disease; R32 Unspecified urinary incontinence; Z79.2 Long term (current) use of antibiotics; Z79.1 Long term (current) use of non-steroidal anti-inflammatories (NSAID); Z79.899 Other long term (current) drug therapy; Z88.8 Allergy status to other drugs, medicaments and biological substances
CPT/HCPCS: 97116; 97162; 88305; 88311; 87070; 87205; 87075; 73660; 28820; J2250; J1100; J0690 ×2; J2405; J2001; J1650; J3010; J1170 ×2; J0330; J2704

== ENCOUNTER → 2019-07-19 | Outpatient (CLI) | payer MEDICARE ==
--- NOTE | 2019-07-19 12:09 | CT ---
EXAMINATION TYPE: CT lumbar spine wo con DATE OF EXAM: 07/19/2019 11:43 AM COMPARISON: MRI 08/08/2012 HISTORY: Lower back pain after fall injuries CT DLP: 882 mGycm Automated exposure control for dose reduction was used. Unenhanced CT of the lumbar spine was performed. Bone and soft tissue window settings are submitted as well as coronal and sagittal reconstructions. FINDINGS: Alignment is near-anatomic with a slight anterolisthesis of L4 on L5. There are parapelvic left renal cysts similar to this MRI of 2011. Aorta of normal caliber. L1-L2: Mild degenerative disc disease with no focal herniation or canal stenosis. Neural foramina are patent. L2-L3: Degenerative disc disease with diffuse broad-based bulging or protrusion. Hypertrophic changes facets noted. There is compression of the thecal sac. Recommend MRI to assess for canal stenosis and bilateral foraminal encroachment L3-L4: Diffuse disc bulging with hypertrophic change of the facets. This calcification within the spi nal canal posteriorly which could related to calcification of the ligamentous structures. There appea rs to be significant canal stenosis and bilateral foraminal encroachment L4-L5: Diffuse disc bulging with hypertrophic change of the facets. This calcification within the spi nal canal posteriorly which could related to calcification of the ligamentous structures. There appea rs is severe canal stenosis and bilateral foraminal encroachment. Suspicion for unilateral incomplete stress spondylolysis on the left. L5-S1: Severe degenerative disc disease with vacuum disc and advanced facet arthropathy. Very mild ce ntral disc bulging. Mild to moderate bilateral foraminal encroachment. No definite canal stenosis. IMPRESSION: 1. Multilevel degenerative disc disease with severe changes L5-S1 and L4-L5. Severe facet arthropathy noted. 2. Severe canal stenosis L4-L5 due to hypertrophic change of the facets, ligamentum flavum and disc b ulging. Grade 1 anterolisthesis contribute to significant bilateral foraminal encroachment. 3. Diffuse disc bulging with hypertrophic changes L3-L4 result in canal stenosis and bilateral forami nal encroachment. 4. Calcifications are seen in the spinal canal posteriorly at L3-4 and L4-L5 which could be related t o ligamentous calcification. Correlation with MRI could BE obtained as clinically warranted.
== END | disposition home or self-care (01) ==
LOC: RADCTMAIN 11:23
PROVIDERS: ATTEND Psychiatry & Neurology Neurology
DX: M48.061 Spinal stenosis, lumbar region without neurogenic claudication (principal); M48.07 Spinal stenosis, lumbosacral region; M51.26 Other intervertebral disc displacement, lumbar region; M43.16 Spondylolisthesis, lumbar region; M51.36 Other intervertebral disc degeneration, lumbar region; M51.37 Other intervertebral disc degeneration, lumbosacral region; M46.97 Unspecified inflammatory spondylopathy, lumbosacral region
CPT/HCPCS: 72131

== ENCOUNTER → 2019-11-19 | Outpatient (CLI) | payer MEDICARE ==
[2019-11-19 13:24] VITALS: BP 123/66; PULSE 71; RESP 14
--- NOTE | 2019-11-19 13:38 | P.PAINCN ---
History of Present Illness - Reason for Consult Consult date: 11/19/19 Back pain and leg pain - History of Present Illness Mrs. Ny is a very pleasant 79-year-old female presents today with a chief complaint of low back pain rating down both legs. She is 79 years old and has a long history of back pain but reports can worsen the last couple years. She is here today with her . She has a history of Parkinson's disease and is on treatment. She reports she's been falling more than usual, in the past she's fallen and had a subdural hematoma which required craniotomy. As of lately she has been using a walker and is able to walk on the hospital is not able to walk as far as she used to. In the past her would walk about half a mile with her walker to 3 times a week but has been unable to do that. She describes pain across her low back which is aching sometimes sharp shooting down both legs all the way into her feet. She describes her right leg pain is worse than the left side. She reports she had a laminectomy about 25 years ago at the L4-L5 level. She denies any bowel or bladder incontinence. She would like to improve her overall pain so she knew back to walking and improve her balance. We discussed that the balance issues may be related to multiple other things, she sees a neurologist every 6 months and reports that they have worked her up for any intracranial pathologies as well. The patient has been in physical therapy in the past and would like to participate in physical therapy again but has been unable to do things because of her pain at this time. She is not using any care manager cna. She does not use any pain medications MRI of the lumbar spine shows a severe narrowing of the neural foramina at L4-L5 on both sides secondary to disc bulge as well as facet arthropathy. There is also central canal stenosis L3 4. Review of Systems Negative except for HPI Past Medical History Past Medical History: Osteoarthritis (OA) Additional Past Medical History / Comment(s): PARKINSONS, HX OF FACIAL BONE FX, BRAIN BLEED (JANUARY 2017). , STATES SOME DIFFICULTY WALKING AT TIMES-USES WALKER PRN. ,varicose veins. History of Any Multi-Drug Resistant Organisms: None Reported Past Surgical History: Back Surgery, Orthopedic Surgery, Tubal Ligation Additional Past Surgical History / Comment(s): LT GREAT TOE AMPUTATION, PAIN CLINIC INJECTIONS YEARS AGO Past Anesthesia/Blood Transfusion Reactions: Postoperative Nausea & Vomiting (PONV) Smoking Status: Never smoker - Past Family History Father Family Medical History: Cancer Additional Family Medical History / Comment(s): PROSTATE CANCER Mother Family Medical History: No Reported History Medications and Allergies Home Medications Medication Instructions Recorded Confirmed Type Acetaminophen Tab [Tylenol Tab] 1,000 mg PO Q6HR PRN 01/30/17 11/19/19 History Carbidopa-Levodopa 25-100 mg 1 tab PO 1000,1300,1600,1900 01/30/17 11/19/19 History [Sinemet 25-100] PARoxetine [Paxil] 10 mg PO HS 01/30/17 11/19/19 History Solifenacin Succinate [Vesicare] 5 mg PO HS 01/30/17 11/19/19 History rOPINIRole HCL [rOPINIRole HCL ER] 8 mg PO DAILY@1700 01/30/17 11/19/19 History Calcium Carbonate/Vitamin D3 1 each PO DAILY 05/23/17 11/19/19 History [Caltrate 600 Plus D3 Tablet] Carbidopa-Levodopa 25-100 mg 1.5 each PO 0700 05/23/17 11/19/19 History [Sinemet 25-100] Magnesium Oxide [Mag-Ox] 250 mg PO DAILY 05/23/17 11/19/19 History Vit C/E/Zn/Coppr/Lutein/Zeaxan 2 each PO BID 05/23/17 11/19/19 History [Preservision Areds 2 Softgel] Allergies Allergy/AdvReac Type Severity Reaction Status Date / Time amantadine Allergy Swelling Verified 11/14/19 11:25 naproxen Allergy Swelling Verified 11/14/19 11:25 pregabalin [From Lyrica] Allergy Swelling Verified 11/14/19 11:25 Physical Exam General: Awake and alert oriented 3 no distress, in a wheelchair today Respiratory exam: No audible wheezing no accessory muscle usage Cardiovascular exam: regular rate, palpable bilateral pulses, no lower extremity edema Abdominal exam: No distention nontender to palpation Cervical spine: Normal alignment, Spurling's negative, facet loading negative, Home Visitor strength is 5/5, molina negative Lumbar spine: Loss of lumbar lordosis, normal alignment, tender to palpation over bilateral paraspinal muscles, facet loading is negative bilaterally. Straight leg raise is positive bilateral. Limited range of motion due to pain with flexion, extension and side bending. Sacroiliac joints: Nontender to palpation, TJ is negative, Gaenselon negative Neuro exam: Patient has normal sensation in the upper extremities. She has a resting tremor which is noted a tremor of cervical spine and difficulty smiling. She has normal sensation in the lower extremities with diminished reflex in the Achilles bilaterally. Patellar reflexes 1+ in the right and absent on the left. Unable to assess her gait on today's visit. Psych exam: Cooperative, appropriate mood Assessment and Plan Assessment: #1 spinal stenosis #2 lumbar radiculopathy #3 Parkinson's disease Plan: After review of the records, examination the patient and the imaging the patient has multiple reasons for her instability. I discussed these with her which may include low back pain and neurogenic claudication. We discussed that they've had a workup for intracranial pathology which is been negative and the patient has Parkinson's disease which is known at this time. We discussed potentially trying to treat the L4-L5 neural foraminal stenosis with epidural steroid injections. I discussed with the injections may help significantly or may offer no benefit overall. They're willing to give it a try. It also like to try physical therapy to be done if her pain is improved after the injection PQRS Measure Charge Sheet Measure #130: Documentation of Current Meds in Medical Chart: Patient's medications documented in chart Measure #111: Pneumonia Vaccination: Pneumococcal vaccine administered or previously received Measure #47: Advance Care Plan: Advance care planning discussed & documented, plan or surrogate given Measure #412: Opioid Treatment Agreement: No documentation of signed opioid treatment agreement Measure #317: Preventitive Care & Scrn High Bld Press & F/U: Normal blood pressure, f/u not required Measure #131: Pain Assessment & Follow-up: Pain positive & plan documented Measure #431: Unhealthy Alcohol Use Preventative Care & Scrn: Patient not identified as an unhealthy alcohol user PQRS Narrative: Smoking Status Never smoker Pain Intensity [Lower Back] 8 Scale Used Numeric (1 - 10) Hx Alcohol Use (MH) No Home Medications: Ambulatory Orders Acetaminophen Tab [Tylenol Tab] 1,000 mg PO Q6HR PRN 01/30/17 Carbidopa-Levodopa 25-100 mg [Sinemet 25-100] 1 tab PO 1000,1300,1600,1900 01/30/17 PARoxetine [Paxil] 10 mg PO HS 01/30/17 Solifenacin Succinate [Vesicare] 5 mg PO HS 01/30/17 rOPINIRole HCL [rOPINIRole HCL ER] 8 mg PO DAILY@1700 01/30/17 Calcium Carbonate/Vitamin D3 [Caltrate 600 Plus D3 Tablet] 1 each PO DAILY 05/23/17 Carbidopa-Levodopa 25-100 mg [Sinemet 25-100] 1.5 each PO 0700 05/23/17 Magnesium Oxide [Mag-Ox] 250 mg PO DAILY 05/23/17 Vit C/E/Zn/Coppr/Lutein/Zeaxan [Preservision Areds 2 Softgel] 2 each PO BID 05/23/17
== END | disposition home or self-care (01) ==
LOC: PNWHC3 12:16
PROVIDERS: ATTEND Hospitalist
DX: M48.061 Spinal stenosis, lumbar region without neurogenic claudication (principal); M54.16 Radiculopathy, lumbar region; G20 Parkinson's disease; M19.90 Unspecified osteoarthritis, unspecified site; Z79.899 Other long term (current) drug therapy; Z88.6 Allergy status to analgesic agent; Z88.8 Allergy status to other drugs, medicaments and biological substances
CPT/HCPCS: 99201

== ENCOUNTER 2019-11-28 09:54 | Day surgery (SDC) | payer MEDICARE ==
[2019-11-26 16:07] VITALS: BMI 25.3
[~2019-11-28 09:54] MED LIST changes: -DEXAMETHASONE SOD PHOSPHATE 10 MG/ML 1 ML VIAL IV ONE; +LACTATED RINGERS 1,000 ML IV SCH; -ONDANSETRON 4 MG/2 ML VIAL IVP ONE; -ceFAZolin IN SWFI 2 GM/20 ML SYRINGE IVP ONE
[2019-11-28] MEDS ORDERED: LACTATED RINGERS 1,000 ML IV ONE (10:27)
[2019-11-28 10:30] VITALS: RESP 16; TEMP 97.8
[2019-11-28] MEDS ORDERED: LIDOCAINE 1% 20 ML VIAL (10MG/ML) FOR IV START INTRADERMA ONE (10:30)
[2019-11-28] MEDS ORDERED: IOPAMIDOL M200 10 ML VIAL ONE (11:04)
[2019-11-28] MEDS ORDERED: MIDAZOLAM 2 MG/2 ML VIAL ONE (11:04)
[2019-11-28] MEDS ORDERED: methylPREDNISolone ACETATE 40 MG/ML 1 ML VIAL ONE (11:04)
[2019-11-28] MEDS ORDERED: fentaNYL (PF) 50 MCG/ML 2 ML AMP ONE (11:04)
--- NOTE | 2019-11-28 11:29 | P.PCN ---
Date of Procedure: 11/28/19 Procedure(s) Performed: PREOPERATIVE DIAGNOSIS: Lumbar radiculopathy. Lumbar foraminal stenosis. Lumbar degenerative disc disease. POSTOPERATIVE DIAGNOSIS: Same as preop diagnosis. PROCEDURE 1. Transforaminal epidural steroid injection under fluoroscopic guidance at L4-5 level bilaterally (Fluoroscopy images stored on file in the radiology Department ) 2. Lumbar epidurogram . ANESTHESIA: moderate sedation with intravenous Versed 1 mg and fentanyle 50 micrograms EBL: Minimal PROCEDURE INDICATION: The patient with low back pain and radiculopathy symptoms unresponsive to conservative treatment. PROCEDURE DESCRIPTION / TECHNIQUE: The patient was seen and identified in the preoperative area. Risks, benefits, complications, and alternatives were discussed with the patient. The patient agreed to proceed with the procedure and signed the consent. IV was started, and vital signs were stable. Patient was taken to the OR and time out was completed. The patient was placed in the prone position on procedure table and a pillow was placed under the abdomen to reduce lumbar lordosis. The lumbosacral area was prepped and draped in the usual sterile fashion. Critical pause was taken. Vital signs were closely monitored during the procedure. Conscious sedation was used during the procedure to decrease patient s anxiety. Using oblique fluoroscopy, the chin of the `Laureny dog at right L4-5 level was identified, and the skin and deeper tissues just below was localized with 1% lidocaine. Subsequently, a 22-gauge 3.5-inch spinal needle was advanced under a tunneled view fluoroscopic guidance just underneath the chin of the `Laureny dog at the right L4- 5 . Under lateral fluoroscopy, the needle was then advanced to the posterior border of the right L4-5 interforaminal space. After negative aspiration of CSF and blood and with no paresthesias, 1 mL Isovue 200 contrast dye was injected excellent epidurogram and outlining of the nerve root Subsequently,then the block solution containing 20 mg Depo-medrol and 1 mL of Lidocaine 1% was injected. Needle was removed ,and the same procedure was repeated at the left L4-5 level (s). At the end of the procedure, skin was cleansed, and bandages were applied. COMPLICATIONS:none DISPOSITION / PLANS: The patient was placed in a supine position and transferred to the recovery area in a stable condition for observation. There was no evidence of lower extremity motor or sensory deficit after the procedure. Patient was discharged from the recovery room after meeting discharge criteria. Home discharge instructions were given to the patient by the staff. The patient was reexamined prior to discharge.
[2019-11-28] MEDS ORDERED: IV FLUID CONTINUATION 1,000 ML IV ONE ×2 (11:32)
--- NOTE | 2019-11-28 11:35 | FL ---
EXAMINATION TYPE: FL guided pain mgmt statistic DATE OF EXAM: 11/28/2019 HISTORY: Pain Orestes transforaminal epidural steroid injection. 8 sec fl. 2 images scanned.
[2019-11-28 12:12] VITALS: BP 173/79; PULSE 83
== END 2019-11-28 12:49 | disposition home or self-care (01) ==
LOC: ORPAIN 09:54
PROVIDERS: ATTEND Specialist
DX: M51.16 Intervertebral disc disorders with radiculopathy, lumbar region (principal); M48.061 Spinal stenosis, lumbar region without neurogenic claudication; Z88.8 Allergy status to other drugs, medicaments and biological substances; Z88.6 Allergy status to analgesic agent; Z78.0 Asymptomatic menopausal state
CPT/HCPCS: 64483; J2250; J1030; J3010; Q9966; 99152

== ENCOUNTER 2019-12-13 08:53 | Day surgery (SDC) | payer MEDICARE ==
[2019-12-12 09:49] VITALS: BMI 25.4
[2019-12-13] MEDS ORDERED: LIDOCAINE 1% (10MG/ML) FOR IV START INTRADERMA ONE (09:30)
--- NOTE | 2019-12-13 09:39 | P.GSHP ---
History of Present Illness H&P Date: 12/13/19 This is 79 years old female with a chronic history of severe low back pain with radiation to the lower extremities bilaterally, she is here today to have bilateral transforaminal epidural steroid injection at L4 5 levels. Past Medical History Past Medical History: Osteoarthritis (OA) Additional Past Medical History / Comment(s): PARKINSONS, HX OF FACIAL BONE FX, BRAIN BLEED (JANUARY 2017). , DIFFICULTY WALKING DUE TO PAIN., USES ROLLING WALKER PRN. ,varicose veins., LEFT GREAT TOE AMPUTATION DUE TO OSTEOMYELITIS. History of Any Multi-Drug Resistant Organisms: None Reported Past Surgical History: Back Surgery, Orthopedic Surgery, Tubal Ligation Additional Past Surgical History / Comment(s): LT GREAT TOE AMPUTATION, PAIN CLINIC INJECTIONS YEARS AGO Past Anesthesia/Blood Transfusion Reactions: Postoperative Nausea & Vomiting (PONV) Past Psychological History: Anxiety Smoking Status: Never smoker Past Alcohol Use History: None Reported Past Drug Use History: None Reported - Past Family History Father Family Medical History: Cancer Additional Family Medical History / Comment(s): PROSTATE CANCER Mother Family Medical History: No Reported History Medications and Allergies Home Medications Medication Instructions Recorded Confirmed Type Acetaminophen Tab [Tylenol Tab] 1,000 mg PO BID PRN 01/30/17 12/12/19 History Carbidopa-Levodopa 25-100 mg 1 tab PO 1000,1300,1600,1900 01/30/17 12/12/19 History [Sinemet 25-100] PARoxetine [Paxil] 20 mg PO HS 01/30/17 12/12/19 History Solifenacin Succinate [Vesicare] 5 mg PO HS 01/30/17 12/12/19 History rOPINIRole HCL [rOPINIRole HCL ER] 8 mg PO HS 01/30/17 12/12/19 History Calcium Carbonate/Vitamin D3 2 each PO DAILY 05/23/17 12/12/19 History [Caltrate 600 Plus D3 Tablet] Carbidopa-Levodopa 25-100 mg 1.5 each PO 0700 05/23/17 12/12/19 History [Sinemet 25-100] Magnesium Oxide [Mag-Ox] 250 mg PO DAILY 05/23/17 12/12/19 History Vit C/E/Zn/Coppr/Lutein/Zeaxan 2 each PO DAILY 05/23/17 12/12/19 History [Preservision Areds 2 Softgel] Allergies Allergy/AdvReac Type Severity Reaction Status Date / Time amantadine Allergy Swelling Verified 12/12/19 09:46 naproxen Allergy Swelling Verified 12/12/19 09:46 pregabalin [From Lyrica] Allergy Swelling Verified 12/12/19 09:46 Surgical - Exam General: Awake and alert oriented 3 no distress, in a wheelchair today Respiratory exam: No audible wheezing no accessory muscle usage Cardiovascular exam: regular rate, palpable bilateral pulses, no lower extremity edema Abdominal exam: No distention nontender to palpation Cervical spine: Normal alignment, Spurling's negative, facet loading negative, Bartenders strength is 5/5, molina negative Lumbar spine: Loss of lumbar lordosis, normal alignment, tender to palpation over bilateral paraspinal muscles, facet loading is negative bilaterally. Straight leg raise is positive bilateral. Limited range of motion due to pain with flexion, extension and side bending. Sacroiliac joints: Nontender to palpation, TJ is negative, Gaenselon negative Neuro exam: Patient has normal sensation in the upper extremities. She has a resting tremor which is noted a tremor of cervical spine and difficulty smiling. She has normal sensation in the lower extremities with diminished reflex in the Achilles bilaterally. Patellar reflexes 1+ in the right and absent on the left. Unable to assess her gait on today's visit. Psych exam: Cooperative, appropriate mood Assessment and Plan Plan: Assessment and plan= #1 spinal stenosis #2 lumbar radiculopathy #3 Parkinson's disease. Patient here today to have a repeat bilateral transforaminal epidural steroid injection at L4 5 levels under fluoroscopy guidance Time with Patient: Less than 30
[2019-12-13 09:43] VITALS: TEMP 97.9
[2019-12-13 09:48] LABS: Glucose,Whole Blood 92 mg/dL (75-99)
[2019-12-13] MEDS ORDERED: MIDAZOLAM 2 MG/2 ML VIAL ONE (09:55)
[2019-12-13] MEDS ORDERED: IOPAMIDOL M200 10 ML VIAL ONE (09:55)
[2019-12-13] MEDS ORDERED: methylPREDNISolone ACETATE 40 MG/ML 1 ML VIAL ONE (09:55)
[2019-12-13] MEDS ORDERED: fentaNYL (PF) 50 MCG/ML 2 ML AMP ONE (09:55)
--- NOTE | 2019-12-13 10:07 | P.PCN ---
Date of Procedure: 12/13/19 Procedure(s) Performed: PREOPERATIVE DIAGNOSIS: Lumbar radiculopathy. Lumbar foraminal stenosis. Lumbar degenerative disc disease. POSTOPERATIVE DIAGNOSIS: Same as preop diagnosis. PROCEDURE 1. Transforaminal epidural steroid injection under fluoroscopic guidance at L4-5 level bilaterally (Fluoroscopy images stored on file in the radiology Department ) 2. Lumbar epidurogram . ANESTHESIA: moderate sedation with intravenous Versed 1 mg and fentanyle 50 micrograms EBL: Minimal PROCEDURE INDICATION: The patient with low back pain and radiculopathy symptoms unresponsive to conservative treatment. PROCEDURE DESCRIPTION / TECHNIQUE: The patient was seen and identified in the preoperative area. Risks, benefits, complications, and alternatives were discussed with the patient. The patient agreed to proceed with the procedure and signed the consent. IV was started, and vital signs were stable. Patient was taken to the OR and time out was completed. The patient was placed in the prone position on procedure table and a pillow was placed under the abdomen to reduce lumbar lordosis. The lumbosacral area was prepped and draped in the usual sterile fashion. Critical pause was taken. Vital signs were closely monitored during the procedure. Conscious sedation was used during the procedure to decrease patienss anxiety. Using oblique fluoroscopy, the chin of the `Laureny dog at right L4-5 level was identified, and the skin and deeper tissues just below was localized with 1% lidocaine. Subsequently, a 22-gauge 3.5-inch spinal needle was advanced under a tunneled view fluoroscopic guidance just underneath the chin of the `Laureny dog at the right L4- 5 . Under lateral fluoroscopy, the needle was then advanced to the posterior border of the right L4-5 interforaminal space. After negative aspiration of CSF and blood and with no paresthesias, 1 mL Isovue 200 contrast dye was injected excellent epidurogram and outlining of the nerve root Subsequently,then the block solution containing 20 mg Depo-medrol and 1 mL of Lidocaine 1% was injected. Needle was removed ,and the same procedure was repeated at the left L4-5 level (s). At the end of the procedure, skin was cleansed, and bandages were applied. COMPLICATIONS:none DISPOSITION / PLANS: The patient was placed in a supine position and transferred to the recovery area in a stable condition for observation. There was no evidence of lower extremity motor or sensory deficit after the procedure. Patient was discharged from the recovery room after meeting discharge criteria. Home discharge instructions were given to the patient by the staff. The patient was reexamined prior to discharge.
[2019-12-13 10:23] VITALS: RESP 16
--- NOTE | 2019-12-13 10:46 | FL ---
EXAMINATION TYPE: FL guided pain mgmt statistic DATE OF EXAM: 12/13/2019 CLINICAL HISTORY: Low back pain. TECHNIQUE: Fluoroscopy. COMPARISON: None. FINDINGS: Fluoroscopic guidance was provided during pain relief procedure performed by Dr. Cao . A total of 8 seconds of fluoroscopic time was utilized during the procedure and 3 spot images are acquired. Images acquired shows needle localization at multiple levels in the lumbar spine. IMPRESSION: As Above.
[2019-12-13 10:49] VITALS: BP 117/77; PULSE 99
== END 2019-12-13 10:49 | disposition home or self-care (01) ==
LOC: ORPAIN 08:53
PROVIDERS: ATTEND Specialist
DX: G89.29 Other chronic pain (principal); M51.16 Intervertebral disc disorders with radiculopathy, lumbar region; M48.061 Spinal stenosis, lumbar region without neurogenic claudication; M19.90 Unspecified osteoarthritis, unspecified site; G20 Parkinson's disease; F41.9 Anxiety disorder, unspecified; I83.90 Asymptomatic varicose veins of unspecified lower extremity; Z98.51 Tubal ligation status; Z89.412 Acquired absence of left great toe; Z79.899 Other long term (current) drug therapy; Z88.6 Allergy status to analgesic agent; Z88.8 Allergy status to other drugs, medicaments and biological substances; Z80.42 Family history of malignant neoplasm of prostate
CPT/HCPCS: 64483; 64484; J2250; J1030; J3010; Q9966; 99152

== ENCOUNTER → 2020-06-24 | Outpatient (CLI) | payer MEDICARE ==
--- NOTE | 2020-06-24 10:11 | CT ---
EXAMINATION TYPE: CT brain wo con DATE OF EXAM: 06/24/2020 COMPARISON: 01/30/2017 HISTORY: Repeated falls CT DLP: 999.8 mGycm Automated exposure control for dose reduction was used. FINDINGS: Moderate generalized degenerative change. Low-attenuation in the white matter is nonspecific but most typical remote microvascular ischemia. Postsurgical changes are noted previous surgery no sizable ex tra-axial fluid collection on today's exam. No midline shift. Calcification in the basal ganglia note d. There is dense calcifications in the region of the left carotid siphon or proximal left MCA suspiciou s for aneurysm measuring 7 mm IMPRESSION: 1. DEGENERATIVE AND NONSPECIFIC WHITE MATTER CHANGES WITH POSTSURGICAL CHANGES. FINDINGS SUGGEST MARTHA TE MICROVASCULAR ISCHEMIA WITH NO SIZABLE EXTRA-AXIAL FLUID COLLECTION. 2. THERE IS A STABLE CALCIFICATION INVOLVING THE JUNCTION OF THE LEFT MCA AND DISTAL ICA WHICH COULD REPRESENT AN ANEURYSM VERSUS SMALL MENINGIOMA MEASURING APPROXIMATELY 7 MM
== END | disposition home or self-care (01) ==
LOC: RADCTMAIN 09:33
DX: R90.82 White matter disease, unspecified (principal); Z98.890 Other specified postprocedural states
CPT/HCPCS: 70450

== ENCOUNTER → 2020-12-17 | Outpatient (CLI) | payer MEDICARE ==
[2020-12-17 11:49] LABS: African American GFR (CKD) >90 (>60 ml/min/1.73 sqM); Blood Urea Nitrogen 29 mg/dL (7-17); Non-African American GFR(CKD) 83 (>60 ml/min/1.73 sqM)
--- NOTE | 2020-12-17 12:57 | CT ---
EXAMINATION TYPE: CT angio head DATE OF EXAM: 12/17/2020 12:50 PM COMPARISON: 06/24/2020, 05/21/2011 HISTORY: Follow up scan per patient. CT DLP: 1027.5 mGycm Automated exposure control for dose reduction was used. TECHNIQUE: Performed with IV Contrast, patient injected with 70 mL of Isovue 370. . FINDINGS: Calcification is noted in recent scan appears be related to atherosclerotic change of the left MCA wi th possible significant stenosis. The calcification appears to extend extra axially and may represent a small calcified meningioma measuring 4 mm. Remaining osseous structures demonstrate normal caliber . Vertebral basilar system is somewhat diminutive in size and patent. Correlate clinically for verteb robasilar deficiency. Atherosclerotic change of bilateral vertebral arteries are seen. There is a partially empty sella turcica. Craniocervical junction maintained. Generalized degenerativ e with nonspecific white matter changes are stable. IMPRESSION: 1. There is atherosclerotic change of the left MCA. The calcifications in question appears to represe nt a combination of MCA atherosclerotic disease and a small extra-axial 4 mm calcification which coul d represent a tiny calcified meningioma with no significant mass effect. Findings retrospectively sta ble dating back to 2010. 2. Diminutive vertebrobasilar system can be associated with vertebrobasilar insufficiency orally clin ically.
== END ==
LOC: RADCTMAIN 11:01
PROVIDERS: ATTEND Psychiatry & Neurology Neurology
DX: I67.2 Cerebral atherosclerosis (principal)
CPT/HCPCS: 82565; 84520; 70496; 36415; Q9967